=== PATIENT | female | born 1970 | race Caucasian/White ===

== ENCOUNTER 2023-10-12 18:41 | Emergency (ER) | payer SELFPAY ==
[2023-10-12 19:00] VITALS: BP 120/77; PULSE 90; RESP 19; TEMP 97.3; BMI 18.8
[2023-10-12] MEDS: SODIUM CHLORIDE 1,000 ML IV ONE (20:00)
[2023-10-12 20:10] LABS: HEMATOCRIT 39.1 % (32.4-45.2); HEMOGLOBIN 12.7 G/dL (10.7-15.3); MCH 28.2 pg (25.7-33.7); MCHC 32.6 g/dl (32.0-36.0); MEAN CELL VOLUME 86.6 fl (80-96); MEAN PLT VOLUME 7.7 fl (7.5-11.1); PLATELET COUNT 311.1 10^3/uL (134-434); RBC 4.52 10^6/uL (3.60-5.2); RDW 15.7 % (11.6-15.6); WHITE BLOOD COUNT 9.3 10^3/uL (4.0-10.8)
[2023-10-12 20:26] LABS: ALBUMIN 3.6 g/dl (3.4-5.0); ALK PHOS 181 U/L (45-117); ANION GAP 7 mmol/L (4-13); BILIRUBIN,TOTAL 0.6 mg/dl (0.2-1); CALCIUM 9.6 mg/dl (8.5-10.1); CHLORIDE 99 mmol/L (98-107); CO2 28 mmol/L (21-32); CREATININE 0.6 mg/dl (0.6-1.3); GLUCOSE,RANDOM 97 mg/dl (74-106); MAGNESIUM 1.8 mg/dL (1.8-2.4); POTASSIUM 4.5 mmol/L (3.5-5.1); SGOT/AST 25 U/L (15-37); SGPT/ALT 14 U/L (7-52); SODIUM 134 mmol/L (136-145); TOT PROT 6.7 g/dl (6.4-8.2)
== END 2023-10-12 23:07 | disposition home or self-care (01) ==
LOC: FER 18:41
PROC: 3E0337Z Introduction of Electrolytic and Water Balance Substance into Peripheral Vein, Percutaneous Approach (ICD-10-PCS; principal; 2023-10-12)
DX: R16.0 Hepatomegaly, not elsewhere classified (principal); R10.31 Right lower quadrant pain; R11.0 Nausea; R68.83 Chills (without fever); R63.0 Anorexia
CPT/HCPCS: 36415; 74177-TC; 80053; 81003; 81015; 83605; 83735; 85027; 86850; 86900; 86901; 87086; 99285-25; Q9967